=== PATIENT | male | born 1955 | race Caucasian/White ===

== ENCOUNTER 2019-10-20 11:47 | Emergency (ER) | payer MEDICARE ==
[2019-10-20] MEDS ORDERED: Sodium Chloride 0.9% 1,000 ML ONE (12:27)
[2019-10-20] MEDS ORDERED: Nitroglycerin 0.4 MG TAB (25 Tab Bottle) ONE (12:27)
--- NOTE | 2019-10-20 12:47 | RAD ---
EXAM: Chest 2 views: HISTORY: Substernal chest pain COMPARISON: None. FINDINGS: There is a normal-sized cardiomediastinal silhouette. The patient is status post CABG. There is no evidence of consolidation, mass, or pleural effusion. Degenerative changes are seen in the spine. IMPRESSION: No evidence of acute cardiopulmonary disease
[2019-10-20 12:48] LABS: #Basophils 0.1 thou/uL (0.0-0.2); #Eosinphils 0.2 thou/uL (0.0-0.7); #Lymphocytes 2.9 thou/uL (1.20-3.40); #Monocytes 0.7 thou/uL (0.11-0.59); #Neutrophils 4.7 thou/uL (1.40-6.50); %Basophils 1.1 % (0.0-1.0); %Eosinophils 2.5 % (0.0-10.0); %Monocytes 7.7 % (0.0-10.0); %Neutrophils 54.7 % (42.0-75.0); Hemoglobin 16.1 g/dL (14.0-18.0); Mean Corpuscular HGB CONC 32.6 g/dL (32.0-36.0); Mean Corpuscular Hemoglobin 31.5 pg (27.0-31.0); Mean Corpuscular Volume 96.5 fL (78.0-98.0); Mean Platelet Volume 10.1 fL (7.4-10.4); Platelet Count 185 thou/uL (130-400); Red Blood Cell (RBC) Count 5.12 mill/uL (4.70-6.10); White Blood Cell (WBC) Count 8.6 thou/uL (4.8-10.8)
[2019-10-20 13:03] LABS: Bilirubin Negative (Negative); Blood, Urine Negative (Negative); Clarity Clear (Clear); Glucose, Urine (Dipstick) Negative (Negative); Leukocyte Negative (Negative); Nitrite Negative (Negative); Protein, Urine (Dipstick) Negative (Neg-Trace); Urobilinogen 0.2 mg/dL (Less than 2)
[2019-10-20 13:03] LABS: ALT (SGPT) 22 U/L (8-55); AST (SGOT) 16 U/L (5-34); Albumin 4.8 g/dL (3.4-4.8); Alkaline Phosphatase 82 U/L (40-110); Anion Gap 19 mmol/L (10-20); BUN (Urea Nitrogen) 15 mg/dL (8.4-25.7); Calc. Creatinine Clearance 0 mL/min (70-130); Carbon Dioxide 25 mmol/L (23-31); Chloride 100 mmol/L (98-107); Estimated GFR-MDRD 80; Globulin 2.8 g/dL (2.4-3.5); Glucose 125 mg/dL (80-115); Potassium 4.6 mmol/L (3.5-5.1); Protein, Total 7.6 g/dL (5.8-8.1); Sodium 139 mmol/L (136-145)
[2019-10-20] MEDS ORDERED: Morphine 4 MG/ML VIAL ONE (13:16)
[2019-10-20] MEDS ORDERED: Sodium Chloride 0.9% 100 ML ONE (13:46)
[2019-10-20] MEDS ORDERED: Sodium Chloride 0.9% 2,000 ML ONE (13:46)
[2019-10-20] MEDS ORDERED: Piperacillin/Tazobactam 3.375 GM VIAL ONE (13:46)
--- NOTE | 2019-10-20 14:35 | CT ---
CT ABDOMEN AND PELVIS WITH IV COTNRAST: HISTORY: Epigastric and substernal chest pain. FINDINGS: The lung bases are clear. The patient is post cholecystectomy. The liver, spleen, pancreas, adrenal glands, and right kidney are normal. There is a 12 mm exophytic cyst arising from the left renal co rtex. No free air, free fluid, or lymphadenopathy is noted in the abdomen or pelvis. The small pepe l loops are not abnormally dilated. There are vascular calcifications without evidence of aneurysmal dilatation of the abdominal aorta. The prostate is enlarged. There is colonic diverticulosis witho ut diverticulitis. Degenerative changes are seen in the spine. IMPRESSION: 1. No acute process. 2. Small left renal cyst. 3. Prostatic enlargement. 4. Colonic diverticulosis. POS: [facility]
[2019-10-20] MEDS ORDERED: Nitroglycerin 2% Ointment 1 INCH/1 GM Packet ONE (14:43)
[2019-10-20] MEDS ORDERED: Aspirin Chewable 81 MG TAB ONE (14:43)
== END 2019-10-20 14:51 | disposition short-term general hospital (02) ==
LOC: NAV ERS 11:47
DX: I10 Essential (primary) hypertension (principal); R10.13 Epigastric pain; R74.0 Nonspecific elevation of levels of transaminase and lactic acid dehydrogenase [LDH]; R00.0 Tachycardia, unspecified; Z86.73 Personal history of transient ischemic attack (TIA), and cerebral infarction without residual deficits; E78.2 Mixed hyperlipidemia; F41.9 Anxiety disorder, unspecified; F32.9 Major depressive disorder, single episode, unspecified; Z79.899 Other long term (current) drug therapy
CPT/HCPCS: 71046; 74177; 80053; 81003; 83605; 84443; 84484; 85025; 87040; 93005; 94760; 96365; 96375; J2270; J2543; J3490; J7050